=== PATIENT | male | born 1985 | race Caucasian/White ===

== ENCOUNTER 2020-04-27 20:14 | Emergency (ER) | payer BC, OTHER ==
[2020-04-27 21:02] LABS: HEMOGLOBIN 14.8 gm/dl (14.0-17.5); RED BLOOD COUNT 5.33 M/UL (4.20-5.50); WHITE BLOOD COUNT 7.8 K/UL (4.5-11.0)
[2020-04-27 21:22] LABS: BUN/CREATININE RATIO 13 (0-10)
[2020-04-27] MEDS ORDERED: NAPROSYN500 MG PO (22:42)
[2020-04-28] MEDS ORDERED: FLORASTOR250 MG PO (01:06)
== END 2020-04-28 01:15 | disposition home or self-care (01) ==
LOC: ER1 20:14
PROVIDERS: Physician Assistant
DX: R10.9 Unspecified abdominal pain (principal); M54.6 Pain in thoracic spine; F17.290 Nicotine dependence, other tobacco product, uncomplicated; Z91.048 Other nonmedicinal substance allergy status
CPT/HCPCS: 80053; 81001; 85025; 96374; 99284; J1885; Q9967